=== PATIENT | female | born 2000 | race Caucasian/White ===

== ENCOUNTER 2025-03-09 03:24 | Emergency (ER) | payer MEDICAID ==
[2025-03-09 03:28] VITALS: O2SAT 99
[2025-03-09 03:29] VITALS: BP 126/81; PULSE 130; RESP 22; TEMP 98.3; O2SAT 100
[2025-03-09] MEDS: MORPHINE SULFATE 4 MG/ML SYRINGE IVP ONE (03:36)
[2025-03-09] MEDS: SODIUM CHLORIDE 0.9% 1,000 ML IV ONE (03:36)
[2025-03-09 03:43] LABS: PLATELET COUNT (AUTO) 419 K/uL (150-450); RED BLOOD CELL COUNT(AUTO) 3.98 MIL/uL (4.00-5.20); RED CELL DISTRIBUTION WIDTH 13.8 % (11.5-14.5); WHITE BLOOD COUNT (AUTO) 10.3 K/uL (4.5-11.0)
[2025-03-09 03:56] LABS: CALCIUM, TOTAL 8.1 mg/dL (8.8-10.5); CREATININE 0.80 mg/dL (0.60-1.30); GLOMERULAR FILTR. RATE CALC > 60 mL/min (>60); GLUCOSE,RANDOM 117 mg/dL (70-110); SODIUM SERUM 142 mmol/L (136-145); UREA NITROGEN, BLOOD 12 mg/dL (7-18)
[2025-03-09 04:02] LABS: ASPARTATE AMINOTRANSFERASE 22 U/L (15-37); TOTAL PROTEIN, SERUM 7.4 g/dL (6.4-8.2)
== END 2025-03-09 03:45 | disposition admitted as inpatient to this hospital (09) ==
LOC: EMS 03:27
DX: S31.117A Laceration without foreign body of abdominal wall, left flank without penetration into peritoneal cavity, initial encounter (principal); S21.112A Laceration without foreign body of left front wall of thorax without penetration into thoracic cavity, initial encounter; S41.112A Laceration without foreign body of left upper arm, initial encounter; S31.821A Laceration without foreign body of left buttock, initial encounter; W26.9XXA Contact with unspecified sharp object(s), initial encounter; Y93.01 Activity, walking, marching and hiking; Y92.89 Other specified places as the place of occurrence of the external cause; Y99.8 Other external cause status
CPT/HCPCS: 99285; 96374; 71045; 80053; 84703; 85025; 36415; 74018; J2270